=== PATIENT | male | born 1965 ===

== ENCOUNTER 2016-12-08 11:56 | Emergency (ER) | payer SELFPAY ==
[2016-12-08] MEDS ORDERED: Lidocaine 2% Inj (20ml) INFIL ONE (12:17)
--- NOTE | 2016-12-08 12:18 | C.PDOC ---
History Of Present Illness 51 yo male w/PMhx of HepC come in for evaluation of Left groin pain mass gradually developed for past 4 days. Otherwise, pt denies known trauma or injury , fever, chills, abd. pain, N/V, UTI sx, denies wound draining, or any other active complaints. Ambulate to ED for evaluation, not in any apparent distress. Time Seen by Provider: 12/08/16 12:07 Chief Complaint (Nursing): Abnormal Skin Integrity History Per: Patient Onset/Duration Of Symptoms: Gradual Past Medical History Reviewed: Historical Data, Nursing Documentation, Vital Signs Vital Signs: Last Vital Signs Temp 98.2 F 12/08/16 13:46 Pulse 79 12/08/16 13:46 Resp 18 12/08/16 13:46 BP 127/72 12/08/16 13:46 Pulse Ox 98 12/08/16 13:46 Surgical History: Appendectomy Family History: States: No Known Family Hx - Social History Hx Tobacco Use: Yes Hx Alcohol Use: Yes (denies) Hx Substance Use: No - Immunization History Hx Tetanus Toxoid Vaccination: No Hx Influenza Vaccination: No Hx Pneumococcal Vaccination: No Review Of Systems Except As Marked, All Systems Reviewed And Found Negative. Constitutional: Negative for: Fever, Chills ENT: Negative for: Throat Pain, Throat Swelling Gastrointestinal: Negative for: Nausea, Vomiting, Abdominal Pain, Diarrhea Genitourinary: Negative for: Dysuria, Frequency, Incontinence Musculoskeletal: Negative for: Neck Pain, Back Pain Skin: Positive for: Lesions Neurological: Negative for: Weakness, Numbness, Altered Mental Status, Headache Physical Exam - Physical Exam Appears: Well, Non-toxic, No Acute Distress Skin: Normal Color, Warm, Dry, Other ((+)Left groin tender mass 3#2cm diameter, (+)erythema, (+)flactulance.) Eye(s): bilateral: PERRL Oral Mucosa: Moist Throat: No Erythema Neck: Supple Gastrointestinal/Abdominal: Soft, No Tenderness, No Distention, No Guarding, No Rebound Back: No CVA Tenderness Extremity: Normal ROM, No Pedal Edema, No Deformity Neurological/Psych: Oriented x3, Normal Speech ED Course And Treatment - Laboratory Results Result Diagrams: 12/08/16 12:16 12/08/16 12:35 Lab Interpretation: Normal O2 Sat by Pulse Oximetry: 96 Pulse Ox Interpretation: Normal Progress Note: On re-evaluation, pt is AAO#3, not in any apparent distress. Afebrile, hemodynamicaly stable. Non-toxic. Tolerate PO well in ED. PulseOx 97 % RA. ENT: no acute findings. neck: Supple. ABd: benitgn, (-)guarding, (-) rebound. SKin: (+) Left groin abscess s/p I&D, tolerate well. Blodo work review and appears without acute abnormalities. Blood cx- pending, abx given. Pt has clinical findings c/w Left groin abscess with early cellulitis. Pt advised on course of ds. Ref. to F/u with ED in 2 days for wound check. return to ED if any worsening or new changes. - Incision & Drainage Of Abscess Anesthesia: Lidocaine 2% Prep Used: Betadine Procedure: Incised W/Scalpel Blade#: (11), Drained Pus, Irrigated Cavity W/ Saline, Probed To Break Up Loculations, Packed W/Gauze (1/2") Disposition Counseled Patient/Family Regarding: Studies Performed, Diagnosis, Need For Followup, Rx Given - Disposition Referrals: Clinic,Med Surg [Primary Care Provider] - [facility] [Outside] Disposition: HOME/ ROUTINE Disposition Time: 13:31 Condition: STABLE Additional Instructions: Take medication as prescribed Keep wound clean, dry Return to ED in 2 days for wound re-check and packing removal. Return to ED at any time if any worsening or new changes. Prescriptions: Clindamycin [Cleocin] 300 mg PO Q6 #28 cap traMADol [Ultram] 50 mg PO TID #7 tab Instructions: Abscess Incision and Drainage (ED), Abscess Follow-up (ED) Forms: [employer] (Georgian) - Clinical Impression Clinical Impression: Abscess
[2016-12-08] MEDS ORDERED: Lidocaine 2% Inj (20ml) ONE (12:25)
[2016-12-08] MEDS ORDERED: cefTRIAXone IV 1 gm in Dextros 50 ML IVPB ONE (12:32)
[2016-12-08 12:43] LABS: BASO # 0.1 K/uL (0.0-0.2); BASO % 1.2 % (0.0-2.0); EOS # 0.4 K/uL (0.0-0.7); EOS % 3.3 % (0.0-4.0); HEMATOCRIT 42.3 % (35.0-51.0); LYMPH % 28.2 % (20.0-40.0); MEAN CELL VOLUME 86.2 fL (80.0-94.0); MEAN CORPUSCULAR HEMOGLOBIN 28.8 pg (27.0-31.0); MEAN CORPUSCULAR HGB CONC 33.4 g/dL (33.0-37.0); MONO # 0.9 K/uL (0.0-0.8); MONO % 8.7 % (0.0-10.0); RED CELL DISTRIBUTION WIDTH 14.7 % (11.5-14.5); WHITE BLOOD COUNT 10.6 K/uL (4.8-10.8)
[2016-12-08 12:49] LABS: CHLORIDE 99 mmol/L (98-107); SODIUM 139 mmol/L (132-148)
[2016-12-08 12:50] LABS: POTASSIUM 4.3 mmol/L (3.6-5.2)
[2016-12-08 12:52] LABS: BLOOD UREA NITROGEN 12 mg/dL (9-20); CARBON DIOXIDE 27 mmol/L (22-30); GFR AFRICAN-AMERICAN > 60
[2016-12-08 12:53] LABS: CALCIUM 9.4 mg/dl (8.6-10.4); GLUCOSE,RANDOM 73 mg/dL (75-110)
[2016-12-08 13:53] VITALS: BP 127/72; PULSE 79; RESP 18; TEMP 98.2
[2016-12-11 18:31] VITALS: O2SAT 96
== END 2016-12-08 13:54 | disposition home or self-care (01) ==
LOC: C.ER 11:56 → SUPCPDRO 11:56 → C.ER 13:54
DX: L02.214 Cutaneous abscess of groin (principal)
CPT/HCPCS: 10060; 80048; 85025; 87040; 96365; 96375; 99285; J0696; J2060

== ENCOUNTER 2016-12-10 09:42 | Emergency (ER) | payer SELFPAY ==
[2016-12-10 09:50] VITALS: BP 119/71; PULSE 87; RESP 20; TEMP 98.1; O2SAT 97
--- NOTE | 2016-12-10 09:57 | C.PDOC ---
History Of Present Illness 51 year old male presents to the ED for evaluation of Incision and Drainage performed on an abscess in the left inguinal area three days ago in the ED. Patient was instructed to return in three days for packing removal. He notes he changes the bandage daily and denies fever or worsening symptoms. Time Seen by Provider: 12/10/16 09:51 Chief Complaint (Nursing): Abnormal Skin Integrity History Per: Patient History/Exam Limitations: no limitations Onset/Duration Of Symptoms: Days (3 days ) Current Symptoms Are (Timing): Better Quality Of Symptoms: denies: Swollen Recent travel outside of the [place]: No Additional History Per: Prior Records Past Medical History Reviewed: Historical Data, Nursing Documentation, Vital Signs Vital Signs: Last Vital Signs Temp 98.1 F 12/10/16 09:48 Pulse 87 12/10/16 09:48 Resp 20 12/10/16 09:48 BP 119/71 12/10/16 09:48 Pulse Ox 97 12/10/16 11:49 Surgical History: Appendectomy Family History: States: Other Other Family History: Non-contributory. - Social History Hx Tobacco Use: Yes Hx Alcohol Use: Yes (denies) Hx Substance Use: No - Immunization History Hx Tetanus Toxoid Vaccination: No Hx Influenza Vaccination: No Hx Pneumococcal Vaccination: No Review Of Systems Constitutional: Negative for: Fever, Chills Cardiovascular: Negative for: Chest Pain Respiratory: Negative for: Shortness of Breath Gastrointestinal: Negative for: Nausea, Vomiting Skin: Positive for: Other (healing I & D to the left groin area) Physical Exam - Physical Exam Appears: Well, Non-toxic, No Acute Distress Skin: Warm, Dry, No Rash, Other (Previous I & D site to left groin, appears to be healing well with no erythema. Mild induration at the site no fluctuance. Small amount of SS draining on bandage. No purulent drainage. ) Head: Atraumatic Eye(s): bilateral: Normal Inspection, EOMI Chest: Symmetrical, No Deformity Cardiovascular: Rhythm Regular Respiratory: Normal Breath Sounds, No Rales, No Rhonchi, No Wheezing Back: No Decreased ROM Extremity: Normal ROM, No Tenderness, No Pedal Edema, No Calf Tenderness, Capillary Refill (good capillary refill, less than two seconds ), No Deformity, No Swelling Neurological/Psych: Oriented x3, Normal Speech, Normal Cognition ED Course And Treatment O2 Sat by Pulse Oximetry: 97 (room air ) Progress Note: Patient instructed to keep area clean and follow up with PMD. Medical Decision Making Medical Decision Making: Packing was removed. Disposition - Disposition Referrals: [facility] [Outside] Disposition: HOME/ ROUTINE Disposition Time: 10:08 Condition: GOOD Additional Instructions: Please follow up with a primary doctor in the next 2 weeks. Keep the wound clean with soap and water and change bandage daily. Return to the ER for any worsening symptoms, fever, increased pain/swelling/drainage,redness or for any other concerns. Instructions: Abscess Incision and Drainage (ED) Forms: General Discharge Instructions, [facility] (Greek) - Clinical Impression Clinical Impression: Abscess packing removal - Scribe Statement The provider has reviewed the documentation as recorded by the Scribe Mayela Castillo All medical record entries made by the Scribe were at my direction and personally dictated by me. I have reviewed the chart and agree that the record accurately reflects my personal performance of the history, physical exam, medical decision making, and the department course for this patient. I have also personally directed, reviewed, and agree with the discharge instructions and disposition.
== END 2016-12-10 10:21 | disposition home or self-care (01) ==
LOC: C.ER 09:42
DX: Z48.00 Encounter for change or removal of nonsurgical wound dressing (principal)

== ENCOUNTER 2017-03-24 09:42 | Emergency (ER) | payer SELFPAY ==
[2017-03-24 09:51] VITALS: BP 134/88; PULSE 87; RESP 18; TEMP 97.8; O2SAT 99
--- NOTE | 2017-03-24 17:28 | C.PDOC ---
History Of Present Illness 51 year old male presents to the ED for evaluation of upper back pain which began 1 week ago. 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 Patient has not taken any medicine this week. Patient denies direct injury/trauma to the area, urinary/bowel incontinence, saddle anesthesia. Chief Complaint (Nursing): Back Pain History Per: Patient History/Exam Limitations: no limitations Onset/Duration Of Symptoms: Days Current Symptoms Are (Timing): Still Present Quality Of Discomfort: "Pain" Previous Symptoms: Back Pain Associated Symptoms: denies: Incontinence, New Weakness, New Numbness Past Medical History Reviewed: Historical Data, Nursing Documentation, Vital Signs Vital Signs: Last Vital Signs Temp 97.8 F 03/24/17 09:50 Pulse 87 03/24/17 09:50 Resp 18 03/24/17 10:43 BP 134/88 03/24/17 09:50 Pulse Ox 99 03/25/17 09:26 - Medical History PMH: No Chronic Diseases Surgical History: Appendectomy Family History: States: Unknown Family Hx - Social History Hx Tobacco Use: Yes Hx Alcohol Use: Yes (denies) Hx Substance Use: No - Immunization History Hx Tetanus Toxoid Vaccination: No Hx Influenza Vaccination: No Hx Pneumococcal Vaccination: No Review Of Systems Genitourinary: Negative for: Incontinence Musculoskeletal: Positive for: Back Pain (upper ) Neurological: Negative for: Weakness, Numbness Physical Exam - Physical Exam Appears: Non-toxic, No Acute Distress Skin: Normal Color, Warm, Dry, No Ecchymosis Head: Atraumatic, Normacephalic Neck: Normal ROM, Supple Back: No Vertebral Tenderness, No Paraspinal Tenderness Extremity: Normal ROM, Capillary Refill (less than 2 seconds ) Neurological/Psych: Oriented x3, Normal Speech, Normal Cognition Gait: Steady ED Course And Treatment O2 Sat by Pulse Oximetry: 99 (on RA) Pulse Ox Interpretation: Normal Medical Decision Making Medical Decision Making: Toradol IM administered. Disposition - Disposition Referrals: [facility] [Outside] [facility] [Outside] Disposition: HOME/ ROUTINE Disposition Time: 10:25 Condition: GOOD Additional Instructions: Thank you for letting us take care of you today. The emergency medical care you received today was directed at your acute symptoms. If you were prescribed any medication, please fill it and take as directed. It may take several days for your symptoms to resolve. Return to the Emergency Department if your symptoms worsen, do not improve, or if you have any other problems. Please contact your doctor or call one of the physicians/clinics you have been referred to that are listed on the Patient Visit Information form that is included in your discharge packet. Bring any paperwork you were given at discharge with you along with any medications you are taking to your follow up visit. Our treatment cannot replace ongoing medical care by a primary care provider (PCP) outside of the emergency department. Thank you for allowing the [facility] team to be part of your care today. Follow up with your doctor or our clinic in 3-4 days for re-evaluation and further management. Prescriptions: Cyclobenzaprine [Cyclobenzaprine HCl] 10 mg PO Q8 PRN #20 tab PRN Reason: Muscle Spasm Ibuprofen [Motrin] 600 mg PO Q6 PRN #20 tab PRN Reason: Pain, Moderate (4-7) Instructions: Back Pain (ED) Forms: [employer] (Wolof) - Clinical Impression Clinical Impression: Back sprain - Scribe Statement The provider has reviewed the documentation as recorded by the Scribe (Mallika Cabrera) Provider Attestation: All medical record entries made by the Scribe were at my direction and personally dictated by me. I have reviewed the chart and agree that the record accurately reflects my personal performance of the history, physical exam, medical decision making, and the department course for this patient. I have also personally directed, reviewed, and agree with the discharge instructions and disposition.
== END 2017-03-24 10:44 | disposition home or self-care (01) ==
LOC: C.ER 09:42
DX: S23.3XXA Sprain of ligaments of thoracic spine, initial encounter (principal); X50.0XXA Overexertion from strenuous movement or load, initial encounter; Y92.89 Other specified places as the place of occurrence of the external cause; Y99.8 Other external cause status
CPT/HCPCS: 96372; 99284; J1885

== ENCOUNTER 2018-07-19 11:44 | Inpatient (IN) | payer MEDICAID ==
--- NOTE | 2018-07-19 12:08 | C.PDOC ---
History Of Present Illness 53 years old male is a chronic heroin abuser that presents to ED requesting detox. Patient states last use was [phone] today. Patient reports he injects heroin and occasional alcohol use. Denies any physical complaints. Time Seen by Provider: 07/19/18 12:01 Chief Complaint (Nursing): Substance Abuse History Per: Patient History/Exam Limitations: no limitations Onset/Duration Of Symptoms: Hrs Current Symptoms Are (Timing): Still Present Suicide/Self Injury Attempted (Context): None Modifying Factor(s): Narcotics (Heroin ) Associated Symptoms: denies: Suicidal Thoughts, Suicidal Plan Involuntary Hold By: None Recent travel outside of the [place]: No Past Medical History Reviewed: Historical Data, Nursing Documentation, Vital Signs Vital Signs: Last Vital Signs Temp 98 F 07/19/18 11:51 Pulse 83 07/19/18 11:51 Resp 20 07/19/18 11:51 BP 147/87 07/19/18 11:51 Pulse Ox 97 07/19/18 11:51 - Medical History PMH: No Chronic Diseases Surgical History: Appendectomy Family History: States: Unknown Family Hx - Social History Hx Tobacco Use: Yes Hx Alcohol Use: Yes (denies) Hx Substance Use: Yes - Immunization History Hx Tetanus Toxoid Vaccination: No Hx Influenza Vaccination: No Hx Pneumococcal Vaccination: No Review Of Systems Except As Marked, All Systems Reviewed And Found Negative. Constitutional: Negative for: Fever, Chills Gastrointestinal: Negative for: Nausea, Vomiting, Diarrhea Skin: Negative for: Rash Neurological: Negative for: Weakness, Numbness Physical Exam - Physical Exam Appears: Non-toxic, No Acute Distress Skin: Warm, Dry, No Rash, Other (Temporalis muscle wasting, sunken orbits. Covered in tattoos and track busby which are inflamed and erythematous) Eye(s): bilateral: Other (Pinpoint pupils ) Chest: Symmetrical, No Tenderness Cardiovascular: Rhythm Regular Respiratory: Normal Breath Sounds, No Rales, No Rhonchi, No Wheezing Gastrointestinal/Abdominal: Soft, No Tenderness Neurological/Psych: Oriented x3, Normal Speech Gait: Steady ED Course And Treatment - Laboratory Results Result Diagrams: 07/19/18 12:25 07/19/18 12:25 O2 Sat by Pulse Oximetry: 97 (RA) Pulse Ox Interpretation: Normal Medical Decision Making Medical Decision Making: Plan: * Blood work * Urinalysis * Crisis Notified Disposition Counseled Patient/Family Regarding: Studies Performed, Diagnosis - Disposition Disposition: HOSPITALIZED Disposition Time: 13:48 Condition: GUARDED Forms: [facility] (Japanese) - POA Present On Arrival: None - Clinical Impression Clinical Impression: Opioid abuse - Scribe Statement The provider has reviewed the documentation as recorded by the Scribe Prosper Mercedes All medical record entries made by the Scribe were at my direction and personally dictated by me. I have reviewed the chart and agree that the record accurately reflects my personal performance of the history, physical exam, medical decision making, and the department course for this patient. I have also personally directed, reviewed, and agree with the discharge instructions and disposition. Decision To Admit - Pt Status Changed To: Hospital Disposition Of: Inpatient - Admit Certification Admit to Inpatient:: After my assessment, the patient will require hospitalization for at least two midnights. This is because of the severity of symptoms shown, intensity of services needed, and/or the medical risk in this patient being treated as an outpatient. - InPatient: Physician Admission Certification: I certify that this patient requires 2 or more midnights of care for the following reason:: needs inpatient detox - . Bed Request Type: Detox Admitting Physician: Mary Rush Patient Diagnosis: Opioid abuse
[2018-07-19 12:28] LABS: BASO # 0.1 K/uL (0.0-0.2); BASO % 0.9 % (0.0-2.0); EOS % 0.4 % (0.0-4.0); HEMOGLOBIN 12.8 g/dL (12.0-18.0); LYMPH # 1.1 K/uL (1.0-4.3); LYMPH % 19.2 % (20.0-40.0); MEAN CELL VOLUME 87.7 fL (80.0-94.0); MEAN CORPUSCULAR HEMOGLOBIN 29.3 pg (27.0-31.0); MEAN CORPUSCULAR HGB CONC 33.4 g/dL (33.0-37.0); MEAN PLATELET VOLUME 8.7 fL (7.2-11.7); MONO # 0.5 K/uL (0.0-0.8); NEUT # 4.1 K/uL (1.8-7.0); NEUT % 70.5 % (50.0-75.0); RBC 4.36 Mil/uL (4.40-5.90); RED CELL DISTRIBUTION WIDTH 14.3 % (11.5-14.5); WHITE BLOOD COUNT 5.8 K/uL (4.8-10.8)
[2018-07-19 12:35] LABS: SQUAMOUS EPITHIAL < 1 /hpf (0-5); URINE BILIRUBIN NEGATIVE (NEGATIVE); URINE BLOOD NEGATIVE (NEGATIVE); URINE CLARITY Clear (Clear); URINE COLOR Yellow (YELLOW); URINE GLUCOSE (UA) NORMAL (Normal); URINE LEUKOCYTE ESTERASE NEG Leu/uL (Negative); URINE PROTEIN NEGATIVE (NEGATIVE); URINE UROBILINOGEN NORMAL mg/dL (0.2-1.0)
[2018-07-19 12:46] LABS: ALB/GLOB RATIO 1.1 (1.0-2.1); ALBUMIN 4.2 g/dL (3.5-5.0); ALT/SGPT 65 U/L (21-72); AST/SGOT 83 U/L (17-59); BLOOD UREA NITROGEN 16 mg/dL (9-20); CALCIUM 8.9 mg/dl (8.6-10.4); GFR NON-AFRICAN AMERICAN > 60
[2018-07-19 12:56] LABS: BARBITURATES, UR NEGATIVE (NEGATIVE); BENZODIAZEPINES, UR NEGATIVE (NEGATIVE); PHENCYCLIDINE, UR NEGATIVE (NEGATIVE)
[2018-07-19 13:13] LABS: OPIATES, UR POSITIVE (NEGATIVE)
[2018-07-19] MEDS ORDERED: Aluminum Hydroxide/Magnesium Hydroxide Susp (30 mL) PO PRN (15:01)
--- NOTE | 2018-07-19 16:03 | PCM.BM ---
<KelvinCiara rosas Tavo - Last Filed: 07/19/18 16:02> Treatment Plan Problems - Problems identified on initial assessmt Defensive Coping Date Initiated: 07/19/18 Time Initiated: 16:02 Assessment reference: NA Status: Active Denial Date Initiated: 07/19/18 Time Initiated: 16:02 Assessment reference: NA Status: Active Treatment assets and liabiliti Patient Assests: ADL independent Patient Liabilities: substance abuse - Milieu Protocol Maintain good personal hygiene: daily Encourage regular showers, daily Remind patient to perform daily oral care, daily Assist patient to perform ADL's Maintain personal safety: every shift Educate patient to report safety concerns to staff, every shift Monitor environment for contraband/sharps Medication safety: Monitor for expected outcome, potential side effects: every shift, Assess barriers to learning: every shift, Assess readiness for medication education: every shift <Nanette Camacho - Last Filed: 07/20/18 13:37> Family Contact Family involvement: Famliy/SO not involved - Goals for Treatment Patient goals for treatment: Complete detox and transition to Vivitrol maintenance. Discharge/Continuing Care - Education Needs Education Needs: Patient Medication, Patient Diagnosis/Disease Process, Patient Coping Skills, Patient Anger Management skills, Patient Placement options, Patient Community resources, Patient Other (Vivitrol maintenance) - Discharge Discharge Criteria: No longer exhibiting s/s of withdrawal, Reduction of target symptoms Discharge to:: Home, With Family - Treatment Team Participation Patient/Family/SO Statement: 07/20/18 13:36 "I wanna try Vivitrol and see if that works for me..." Discussed with Family/SO: No Was Patient/Family/SO present at Treatment Team Meeting: Yes
--- NOTE | 2018-07-20 10:47 | PCM.PSYCH ---
Initial Psychiatric Evaluation - Initial Psychiatric Evaluation Type of Admission: Voluntary Legal Status: Capacity History of Present Illness and Precipitating Events: 53-year-old male with two children ages 14 and 32. The 14-year-old lives at home with the mother. Patient is currently unemployed. Patient currently living with his father. States that he does 7 bags of IV heroin per day. He started doing heroin 20 years ago. Two years is the longest he has ever been sober ( [phone]). He started using again after he lost his brother five years ago. Denies prior hospitalization for psych issues. Pt has used suboxone in the past, but states that it did not work for him. Pt is currently feeling nauseous, stating that "everything stinks". Reports yawning, hot flashes, and chills. Denies using Xanax, Etoh, cocaine, and another substance. Denies prior psych admissions, history of overdosing, Suicidal and homicidal ideations. Pt would like to go home after detox. 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 Trauma History: Denies Current Medications: Active Medications Generic Name Dose Route Start Last Admin Trade Name Freq PRN Reason Stop Dose Admin Al Hydrox/Mg Hydrox/Simethicone 30 ml 07/19/18 15:01 Maalox 30 Ml PO TID PRN Indigestion / Heartburn Clonidine HCl 0.1 mg 07/19/18 15:01 07/20/18 08:51 Catapres PO 0.1 mg Q4 PRN Administration COWS Score More or Equal to 5 Dicyclomine HCl 10 mg 07/19/18 15:01 Bentyl PO Q6 PRN Muscle spasm Gabapentin 100 mg 07/19/18 18:00 07/20/18 09:41 Neurontin PO 100 mg TID STEPH Administration Hydroxyzine HCl 25 mg 07/19/18 15:02 07/20/18 08:51 Atarax PO 25 mg Q6 PRN Administration Agitation Ibuprofen 600 mg 07/19/18 15:01 Motrin Tab PO Q6 PRN Pain, moderate (4-7) Loperamide HCl 2 mg 07/19/18 15:01 Imodium PO Q8 PRN Diarrhea Ondansetron HCl 4 mg 07/19/18 15:01 Zofran Tab PO Q8 PRN Nausea/Vomiting Pseudoephedrine HCl 60 mg 07/19/18 15:01 Sudafed Tab PO QID PRN Nasal/Sinus Congestion Trazodone HCl 50 mg 07/19/18 22:00 07/19/18 22:40 Desyrel PO Not Given HS STEPH Past Psychiatric History - Past Psychiatric History Pertinent Medical Hx (Current Medical&Sleep Prob, Allergies): Allergies Allergy/AdvReac Type Severity Reaction Status Date / Time No Known Allergies Allergy Verified 07/19/18 11:54 No Known Home Med 07/19/18
--- NOTE | 2018-07-21 10:13 | PCM.PYCHDC ---
Mental Status Examination - Mental Status Examination Orientation: Person Discharge Summary - Discharge Note Consultations:: List each consultation separately and include: 1. Reason for request. 2. Findings. 3. Follow-up Summary of Hospital Course include:: 1. Description of specific treatment plan utilized for patients during their course of treatmen. 2. Summarize the time- course for resolution of acute symptoms and/or regressed behaviors. 3. Describe issues identified and worked on during hospitalization. 4. Describe medication utilized. 5. Describe medical problems identified and treated. 6. Reassessment of suicide risk - Final Diagnosis (DSM 5) Condition upon Discharge: GUARDED Disposition: AGAINST MEDICAL ADVICE
[2018-07-21 11:40] VITALS: BP 122/68; PULSE 74; RESP 18; TEMP 97.1; O2SAT 95
== END 2018-07-21 10:30 | disposition left against medical advice (07) | DRG 743 ==
LOC: C.ER 11:44 → C.7D 13:51
PROVIDERS: ADMIT Psychiatry & Neurology Psychiatry; ATTEND Psychiatry & Neurology Psychiatry
DX: F11.10 Opioid abuse, uncomplicated (principal); F17.210 Nicotine dependence, cigarettes, uncomplicated; M62.838 Other muscle spasm; R45.1 Restlessness and agitation